=== PATIENT | female | born 1990 | race Caucasian/White ===

== ENCOUNTER 2017-04-26 21:48 | Emergency (ER) | payer MEDICAID ==
[~2017-04-26] VITALS: Ht 162.6 cm; Wt 86.1 kg
[~2017-04-26 21:48] MED LIST: ACYC-113 PO
[2017-04-26] MEDS ORDERED: KETOROLAC 30 MG/1 ML IM ONE (23:30)
[2017-04-26] MEDS ORDERED: KETOROLAC 30 MG/1 ML ONE (23:37)
[2017-04-26 23:39] LABS: HCG UR OBC PASS
[2017-04-26 23:47] LABS: BLOOD UREA NITROGEN 15 mg/dL (7-18)
[2017-04-27 00:49] VITALS: BP 104/66
== END 2017-04-27 00:50 | disposition home or self-care (01) ==
LOC: ED 23:13
DX: R10.2 Pelvic and perineal pain (principal); Z88.1 Allergy status to other antibiotic agents
CPT/HCPCS: 36415; 76830; 80048; 81003; 81025; 82040; 85025; 96372; 99285; J1885

== ENCOUNTER 2017-09-07 10:18 | Emergency (ER) | payer MEDICAID ==
[~2017-09-07] VITALS: Ht 162.6 cm; Wt 85.4 kg
[2017-09-07] MEDS ORDERED: SODIUM CHLORIDE 0.9% 1,000 ML IV ONE (10:49)
[2017-09-07] MEDS ORDERED: ONDANSETRON 2MG/ML, 2ML IVPush ONE (11:00)
[2017-09-07] MEDS ORDERED: SODIUM CHLORIDE FLUSH 10ML SYR IVF ONE (11:00)
[2017-09-07] MEDS ORDERED: SODIUM CHLORIDE 0.9% 1,000ML IVBOLUS ONE (11:00)
[2017-09-07] MEDS ORDERED: ONDANSETRON 2MG/ML, 2ML ONE (11:00)
[2017-09-07] MEDS ORDERED: PREN-3 PO (11:29)
[2017-09-07 11:31] LABS: HEMATOCRIT 42.9 % (34.6-47.8); HEMOGLOBIN 14.5 g/dL (11.7-16.4); WHITE BLOOD COUNT 10.1 x10^3/uL (3.4-10)
[2017-09-07 11:43] LABS: BLOOD UREA NITROGEN 7 mg/dL (7-18)
[2017-09-07 11:47] LABS: ASPARTATE AMINO TRANSFERASE 19 U/L (15-37)
[2017-09-07 12:33] VITALS: BP 110/74
[2017-09-07 12:44] VITALS: BP 115/74
[2017-09-07 12:54] VITALS: BP 109/65
== END 2017-09-07 13:02 | disposition home or self-care (01) ==
LOC: ED 11:58
DX: O20.0 Threatened abortion (principal); Z3A.08 8 weeks gestation of pregnancy
CPT/HCPCS: 36415; 76801; 80053; 81003; 85025; 86850; 86900; 96361; 96374; 99285; J2405; J2790; J7030